=== PATIENT | male | born 1955 | race Two or more races ===

== ENCOUNTER → 2018-02-17 | Outpatient (CLI) | payer OTHER | END | disposition home or self-care (01) | LOC: MRI 14:05 | DX: M79.605 Pain in left leg (principal) | CPT/HCPCS: 73718 ==

== ENCOUNTER 2019-02-16 14:10 | Outpatient (CLI) | payer OTHER | END 2019-02-16 15:00 | disposition home or self-care (01) | LOC: RAD 14:10 | DX: M79.641 Pain in right hand (principal) ==

== ENCOUNTER 2019-07-14 02:57 | Emergency (ER) | payer OTHER ==
[~2019-07-14] VITALS: Ht 175.3 cm; Wt 86.2 kg
[2019-07-14] MEDS ORDERED: EXFORGE 5-3201 EACH (03:27)
[2019-07-14] MEDS ORDERED: TOPROL XL50 M1 (03:27)
[2019-07-14] MEDS ORDERED: CHILDREN'S ASPI81 MG (03:28)
== END 2019-07-15 09:27 | disposition home or self-care (01) ==
LOC: ER 02:57
DX: R04.0 Epistaxis (principal); I10 Essential (primary) hypertension

== ENCOUNTER 2019-07-21 12:30 | Outpatient (CLI) | payer OTHER ==
[~2019-07-21 12:30] MED LIST: CHILDREN'S ASPI81 MG; EXFORGE 5-3201 EACH; TOPROL XL50 M1
== END 2019-07-21 15:30 | disposition home or self-care (01) ==
LOC: OFIC 805 12:30
DX: R04.0 Epistaxis (principal)

== ENCOUNTER → 2019-08-26 | Outpatient (CLI) | payer OTHER | END | disposition home or self-care (01) | LOC: OFIC 805 12:18 | DX: R04.0 Epistaxis (principal); R09.81 Nasal congestion ==

== ENCOUNTER 2020-01-15 07:00 | Outpatient (CLI) | payer OTHER | END 2020-01-15 15:48 | disposition home or self-care (01) | LOC: PPH VACUNA 07:00 | DX: Z23 Encounter for immunization (principal) ==

== ENCOUNTER → 2020-02-05 | Outpatient (CLI) | payer OTHER | END | disposition home or self-care (01) | LOC: MRI 12:45 | PROVIDERS: ATTEND Radiology Diagnostic Radiology | DX: M25.461 Effusion, right knee (principal) | CPT/HCPCS: 73721 ==

== ENCOUNTER 2020-04-12 09:55 | Outpatient (CLI) | payer OTHER | END 2020-04-12 15:00 | disposition home or self-care (01) | LOC: PPH VACUNA 09:55 | DX: Z23 Encounter for immunization (principal) ==

== ENCOUNTER 2021-01-23 08:00 | Outpatient (CLI) | payer OTHER | END 2021-01-23 08:30 | disposition home or self-care (01) | LOC: PPH VACUNA 08:00 | PROVIDERS: ATTEND Emergency Medicine Pediatric Emergency Medicine | DX: Z23 Encounter for immunization (principal) ==

== ENCOUNTER 2021-08-02 08:00 | Outpatient (CLI) | payer OTHER | END 2021-08-02 08:30 | disposition home or self-care (01) | LOC: PPH VACUNA 08:00 | PROVIDERS: ATTEND Emergency Medicine Pediatric Emergency Medicine | DX: Z23 Encounter for immunization (principal) ==

== ENCOUNTER 2022-03-29 14:53 | Outpatient (CLI) | payer OTHER | END 2022-03-29 15:03 | disposition home or self-care (01) | LOC: PPH VACUNA 14:53 | PROVIDERS: ATTEND Emergency Medicine Pediatric Emergency Medicine | DX: Z23 Encounter for immunization (principal) ==

== ENCOUNTER 2022-03-29 14:59 | Outpatient (CLI) | payer OTHER | END 2022-03-29 15:09 | disposition home or self-care (01) | LOC: PPH VACUNA 14:59 | PROVIDERS: ATTEND Emergency Medicine Pediatric Emergency Medicine | DX: Z23 Encounter for immunization (principal) ==

== ENCOUNTER 2022-04-17 07:41 | Day surgery (SDC) | payer OTHER ==
[~2022-04-17] VITALS: Ht 175.3 cm; Wt 90.7 kg
== END 2022-04-17 12:00 | disposition home or self-care (01) ==
LOC: ER 07:41 → CIR.AMB 08:21
PROVIDERS: ATTEND Surgery
DX: K57.90 Diverticulosis of intestine, part unspecified, without perforation or abscess without bleeding (principal); R19.8 Other specified symptoms and signs involving the digestive system and abdomen; K62.89 Other specified diseases of anus and rectum; I10 Essential (primary) hypertension

== ENCOUNTER 2022-08-28 12:29 | Outpatient (CLI) | payer OTHER | END 2022-08-28 12:41 | disposition home or self-care (01) | LOC: RAD 12:29 | PROVIDERS: ATTEND Pediatrics Neonatal-Perinatal Medicine | DX: M17.0 Bilateral primary osteoarthritis of knee (principal) ==

== ENCOUNTER 2023-03-06 14:22 | Outpatient (CLI) | payer OTHER | END 2023-03-06 14:40 | disposition home or self-care (01) | LOC: RAD 14:22 | DX: Z01.811 Encounter for preprocedural respiratory examination (principal) ==